=== PATIENT | female | born 1980 ===

== ENCOUNTER 2017-06-29 08:49 | Day surgery (SDC) | payer OTHER ==
[2017-06-29] MEDS ORDERED: Midazolam 2 MG/2 ML VIAL ONE (11:23)
[2017-06-29] MEDS ORDERED: Propofol 10 mg/ml Inj (20 ML) ONE (11:23)
[2017-06-29] MEDS ORDERED: Silver Nitrate Topical - Stick ONE (11:51)
--- NOTE | 2017-06-29 11:58 | PCM.SURG1 ---
Surgeon's Initial Post Op Note - Surgeon's Notes Surgeon: Dr. Howard Pot Press Operator: None Type of Anesthesia: General LMA Anesthesia Administered By: Dr. Mcmahon Pre-Operative Diagnosis: 36 yo with Menorrhagia, Irregular mentrual cycle Operative Findings: AV uterus polyps Post-Operative Diagnosis: Same as above Operation Performed: Hysteroscopy Myosure D and C Specimen/Specimens Removed: Polyp, EMC,ECC Estimated Blood Loss: EBL {In ML}: 5 Blood Products Given: N/A Drains Used: No Drains Post-Op Condition: Good Date of Surgery/Procedure: 06/29/17 Time of Surgery/Procedure: 11:58
[2017-06-29] MEDS ORDERED: HYDROmorphone 0.5 mg/0.5 ml ISec IVP PRN (12:01)
[2017-06-29 12:14] VITALS: O2SAT 100
[2017-06-29 14:18] VITALS: BP 110/78; PULSE 87; RESP 18; TEMP 97.4
--- NOTE | 2017-06-29 16:46 | OP ---
PROCEDURE DATE: 06/29/2017 PREOPERATIVE DIAGNOSIS: A 36-year-old female with history of menorrhagia, irregular menstrual period, endometrial polyp and failure of medical therapy. POSTOPERATIVE DIAGNOSIS: A 36-year-old female with history of menorrhagia, irregular menstrual period, endometrial polyp and failure medical therapy. PROCEDURE: Hysteroscopy and MyoSure and D and C. SURGEON: Candice Howard MD ANESTHESIOLOGIST: Dr. Duarte. TYPE OF ANESTHESIA: General LMA. FINDINGS: Anteverted uterus approximately 10 weeks' gestation noted to have multiple endometrial polyps. COMPLICATIONS: None. ESTIMATED BLOOD LOSS: 5 mL. INTAKE AND OUTPUT: 100 mL. SPECIMENS: EMC, ECC and polyp. DESCRIPTION OF PROCEDURE: The patient was informed of the risk factors, benefits, and alternative of the procedure. Risks did include an infection, bleeding, damages to surrounding organs or tissues, complications from the anesthesia and possible . After informed consent was obtained, she was then taken to the operating room, prepped and draped in normal sterile fashion, placed in dorsal lithotomy position. A weighted speculum was placed into the vagina. The anterior lip of the cervix was grasped with a single-toothed tenaculum. The uterus was gently sounded to approximately 10 cm. Upon complete uterine dilation, the scope was then placed and complete surveillance of the uterine cavity was then performed and noted have multiple endometrial polyps. The MyoSure device was then activated. Under direct visualization, the polyps were then removed and submitted to pathology. In that particular instance upon completion, the scope was then removed and a fractional D and C was performed. EMC and ECC was submitted to pathology, excellent hemostasis was noted. Upon completion, all instruments were removed from the vagina. Instrument and lap counts were correct x2. The patient was then taken to the recovery room in stable condition and instructed to follow up in the office in approximately 2 weeks. Candice Howard MD
== END 2017-06-29 14:01 | disposition home or self-care (01) ==
LOC: C.SDS 08:49
PROVIDERS: ATTEND Obstetrics & Gynecology
DX: N92.0 Excessive and frequent menstruation with regular cycle (principal); N84.0 Polyp of corpus uteri
CPT/HCPCS: 58563; 88305; J2250; J2704; J3010